=== PATIENT | male | born 1985 | race Two or more races ===

== ENCOUNTER 2020-02-07 20:07 | Emergency (ER) | payer SELFPAY ==
[~2020-02-07] VITALS: Ht 175.3 cm; Wt 45.4 kg
[2020-02-07 20:15] VITALS: BP 126/75
[2020-02-07] MEDS ORDERED: CIPR500T PO (20:29)
--- NOTE | 2020-02-07 20:29 | PHYS DOC ---
General Adult EDM: Chief Complaint: FOOT INJURY PAIN HPI: HPI: Patient is a 34 year old male who presents with complaint of injury to the right foot. Patient stepped on a nail through a tennis shoe yesterday and states that he is not up-to-date on his tetanus. Patient reports pain is very mild. He denies any signs of infection. [] Review of Systems: Review of Systems: Constitutional: Denies fever or chills. [] Respiratory: Denies cough or shortness of breath. [] Cardiovascular: Denies chest pain or edema. [] Musculoskeletal: Positive right foot injury/pain. [] Integument: Denies rash. [] Heart Score: Risk Factors: Risk Factors: DM, Current or recent (<one month) smoker, HTN, HLP, family history of CAD, obesity. Risk Scores: Score 0 - 3: 2.5% MACE over next 6 weeks - Discharge Home Score 4 - 6: 20.3% MACE over next 6 weeks - Admit for Clinical Observation Score 7 - 10: 72.7% MACE over next 6 weeks - Early Invasive Strategies Allergies: Allergies: Allergies Coded Allergies Type Severity Reaction Last Updated Verified No Known Drug Allergies 02/07/20 No Physical Exam: PE: Constitutional: Well developed, well nourished, no acute distress, non-toxic appearance. [] Cardiovascular:Heart rate regular rhythm, no murmur [] Lungs & Thorax: Bilateral breath sounds clear to auscultation [] Skin: Warm, dry, no erythema, no rash. [] Extremities: Plantar aspect of right foot demonstrates punctate wound with no signs of infection. [] EKG: EKG: [] Radiology/Procedures: Radiology/Procedures: [] Course & Med Decision Making: Course & Med Decision Making Pertinent Labs and Imaging studies reviewed. (See chart for details) [] Dragon Disclaimer: [email or web address] Disclaimer: This electronic medical record was generated, in whole or in part, using a voice recognition dictation system. Departure Departure Impression: Primary Impression: Puncture wound of foot, right Qualified Codes: S91.331A - Puncture wound without foreign body, right foot, initial encounter Disposition: HOME, SELF-CARE Condition: STABLE Patient Instructions: Puncture Wound Scripts Ciprofloxacin Hcl (CIPROFLOXACIN HCL) 500 Mg Tablet 1 TAB PO BID, #20 TAB Prov: RAVEN GUILLEN Jr. DO 02/07/20 RAVEN GUILLEN Jr. DO February 07, 2020 20:29
[2020-02-07] MEDS ORDERED: CIPROFLOXACIN HCL 250 MG TABLET. PO ONE (20:30)
[2020-02-07] MEDS ORDERED: DIPH,PERTUSS(ACELL),TET VAC/PF 0.5 ML SYRINGE. VAX IM ONE (20:45)
== END 2020-02-07 20:51 | disposition home or self-care (01) ==
LOC: ER 20:07
DX: S91.331A Puncture wound without foreign body, right foot, initial encounter (principal); W22.09XA Striking against other stationary object, initial encounter; Y93.89 Activity, other specified; Y92.89 Other specified places as the place of occurrence of the external cause; Y99.8 Other external cause status
CPT/HCPCS: 90471; 90715; 99283